=== PATIENT | female | born 2000 | race Caucasian/White ===

== ENCOUNTER 2019-12-20 12:03 | Emergency (ER) | payer MEDICAID, OTHER ==
[~2019-12-20] VITALS: Ht 162.6 cm; Wt 59.4 kg
[2019-12-20 12:17] VITALS: BP 111/73
[2019-12-20] MEDS ORDERED: TETANUS-DIPTH-ACEL PERTUSSIS 0.5ML SYRG IM ONE (13:00)
== END 2019-12-20 13:23 | disposition home or self-care (01) ==
LOC: ER 12:03
DX: S61.216A Laceration without foreign body of right little finger without damage to nail, initial encounter (principal); Z88.1 Allergy status to other antibiotic agents; W26.0XXA Contact with knife, initial encounter; Y93.89 Activity, other specified; Y92.89 Other specified places as the place of occurrence of the external cause; Y99.8 Other external cause status
CPT/HCPCS: 12001; 90471; 90715